=== PATIENT | female | born 1985 | race Caucasian/White ===

== ENCOUNTER 2019-05-05 09:31 | Outpatient (CLI) | payer OTHER ==
[~2019-05-05 09:31] MED LIST: FOLIC ACID1 MG PO; PRENATAL ONE T1 EACH PO; PROBIOTIC1 EAC1 PO
== END 2019-05-05 09:33 | disposition home or self-care (01) ==
LOC: SONOGRAMA 09:31
DX: E04.1 Nontoxic single thyroid nodule (principal)